=== PATIENT | female | born 1940 | race Caucasian/White ===

== ENCOUNTER → 2019-11-12 08:31 | Outpatient (BNVA) | payer MEDICARE, OTHER, SELFPAY | PROVIDERS: Family Provider Family Medicine; PCP Family Medicine; Referring Provider Family Medicine; Visit Provider Family Medicine | DX: I10 Essential (primary) hypertension (principal) | CPT/HCPCS: 80053; 80061; 85025 ==

== ENCOUNTER → 2020-05-15 09:54 | Outpatient (BNVA) | payer MEDICARE, OTHER, SELFPAY | PROVIDERS: Family Provider Family Medicine; PCP Family Medicine; Visit Provider Family Medicine | DX: I10 Essential (primary) hypertension (principal) | CPT/HCPCS: 80048 ==

== ENCOUNTER → 2021-02-09 09:26 | Outpatient (BNVA) | payer MEDICARE, OTHER, SELFPAY | PROVIDERS: Family Provider Family Medicine; PCP Family Medicine; Visit Provider Family Medicine | DX: Z00.00 Encounter for general adult medical examination without abnormal findings (principal); I10 Essential (primary) hypertension; E78.00 Pure hypercholesterolemia, unspecified; Z86.73 Personal history of transient ischemic attack (TIA), and cerebral infarction without residual deficits | CPT/HCPCS: 80053; 80061; 85025 ==

== ENCOUNTER 2021-11-24 22:55 | Emergency (ER) | payer MEDICARE, OTHER, SELFPAY ==
[2021-11-24 23:02] VITALS: BP 166/85; PULSE 102; RESP 18; TEMP 37.1; O2SAT 96; BMI 22.4
--- NOTE | 2021-11-24 23:20 | W.ED.EPISTAX ---
HPI - Epistaxis General: Chief complaint: Epistaxis Stated complaint: Nose Bleed Time Seen by Provider: 11/24/21 22:57 Source: patient Mode of arrival: ambulatory Limitations: no limitations History of Present Illness: HPI Narrative: 81-year-old female states she has had intermittent nosebleed since this morning states its been a small amount she been stuffing her nose with tissue when she pulls it out she pulls clots out and states she bleeds again. Bleeding is currently stopped she denies any bleeds in the past not on any blood thinners denies any worsening improving factors. Associated symptoms: Deny fever(s), headache(s) or vomiting Review of Systems Const: Denies: fever(s), chills, body aches or change in appetite Eyes: Denies: blurry vision or eye discomfort ENMT: Reports: epistaxis; Denies: throat pain or dental pain Card: Denies: chest pain Resp: Denies: dyspnea GI: Denies: abdominal pain, nausea, vomiting or diarrhea : Denies: dysuria Musc: Denies: neck pain or back pain Skin/Breast: Denies: rash Neuro: Denies: headache(s) Psych: Denies: depression Brad/Lymph: Denies: easy bruising All/Imm: Denies: urticaria PFSH ED PFSH: Medical History History of CVA (cerebrovascular accident) Hypertension Pure hypercholesterolemia Social History Smoking and tobacco status: never smoked Alcohol intake: never Physical Exam Const: COMMON NORMALS: no acute distress and patient oriented x3 HENMT: OTHER: Dried blood to the right nare Eye: COMMON NORMALS: EOMs intact bilaterally Neck/C-Spine: COMMON NORMALS: full ROM Chest: COMMONS NORMALS: normal inspection of the chest Resp: COMMON NORMALS: normal respiratory effort Cardio: COMMON NORMALS: regular rate RATE: regular rate Extremity: COMMON NORMALS: normal to inspection Neuro: COMMON NORMALS: patient oriented x3 Psych: COMMON NORMALS: mental status grossly normal Skin: COMMON NORMALS: no rashes or lesions noted GENERAL SKIN EXAM: no rashes or lesions noted Course Vital Signs: Vital signs: Vital Signs Temperature 98.7 F 11/24/21 23:02 Pulse Rate 102 H 11/24/21 23:02 Respiratory Rate 18 11/24/21 23:02 Blood Pressure 166/85 11/24/21 23:02 Pulse Oximetry 96 11/24/21 23:02 MDM - Epistaxis MDM Narrative: Medical decision making narrative: Patient presents with a nosebleed that is since stopped she is well-appearing here she is stable for discharge she is to follow-up with PCP and return if worsening she understands agrees to plan. Discharge Plan Discharge Patient Disposition: Home Clinical Impression: Epistaxis Condition: Stable Prescriptions: No Action aspirin [Adult Low Dose Aspirin] 81 mg tablet,delayed release (DR/EC) 81 mg PO DAILY RF: 0 diltiazem HCl 120 mg tablet 120 mg PO BID Qty: 180 RF: 3 simvastatin 20 mg tablet 20 mg PO DAILY Qty: 90 RF: 3 clopidogrel 75 mg tablet 75 mg PO DAILY Qty: 90 RF: 3 nifedipine 30 mg tablet extended release 30 mg PO DAILY Qty: 90 RF: 3 Discharge Orders: Discharge ED (Routine); Ordered 11/24/21 Ordered By: Anthony Yanez Referrals: Brenda Sue MD [Primary Care Provider] - 1-3 days Discharge Diet: Advance as tolerated Discharge Activity: Resume usual activity Patient Instructions: Nosebleed (ED) Coding Level of Care Code ED Business Account Leader for Chg Fwd Exam Comprehensive
[2021-11-24] MEDS: oxymetazoline 0.05% Nasal Spray 15 mL 2 SPRAY NOSTRIL-B (23:25)
--- NOTE | 2021-11-25 00:10 | PC.NURSE ---
bleeding has stopped.
[2021-11-25 00:25] VITALS: BP 139/85; PULSE 82; RESP 16; O2SAT 99
== END 2021-11-25 00:29 | disposition home or self-care (01) ==
PROVIDERS: Emergency Provider Emergency Medicine; PCP Family Medicine
DX: R04.0 Epistaxis (principal); I10 Essential (primary) hypertension; E78.00 Pure hypercholesterolemia, unspecified; Z79.82 Long term (current) use of aspirin; Z79.02 Long term (current) use of antithrombotics/antiplatelets; Z86.73 Personal history of transient ischemic attack (TIA), and cerebral infarction without residual deficits
CPT/HCPCS: 99283

== ENCOUNTER → 2022-02-15 09:27 | Outpatient (BNVA) | payer MEDICARE, OTHER, SELFPAY | PROVIDERS: PCP Family Medicine; Visit Provider Family Medicine | DX: E78.00 Pure hypercholesterolemia, unspecified (principal); I10 Essential (primary) hypertension | CPT/HCPCS: 80053; 80061; 85025 ==

== ENCOUNTER → 2023-04-18 10:41 | Outpatient (BNVA) | payer MEDICARE, OTHER, SELFPAY | PROVIDERS: PCP Family Medicine; Visit Provider Family Medicine | DX: Z00.00 Encounter for general adult medical examination without abnormal findings (principal); H61.21 Impacted cerumen, right ear; I10 Essential (primary) hypertension; E78.00 Pure hypercholesterolemia, unspecified; Z79.899 Other long term (current) drug therapy | CPT/HCPCS: 80053; 80061; 85025 ==

== ENCOUNTER → 2024-06-05 15:56 | Outpatient (BNVA) | payer MEDICARE, OTHER, SELFPAY | PROVIDERS: PCP Family Medicine; Visit Provider Family Medicine | DX: I10 Essential (primary) hypertension (principal); E78.00 Pure hypercholesterolemia, unspecified; E03.9 Hypothyroidism, unspecified | CPT/HCPCS: 80053; 80061; 84443; 85025; 93005 ==

== ENCOUNTER → 2024-07-02 08:56 | Outpatient (BNVA) | payer MEDICARE, OTHER, SELFPAY | PROVIDERS: PCP Family Medicine; Visit Provider Internal Medicine | DX: R00.2 Palpitations (principal); I49.3 Ventricular premature depolarization; I49.1 Atrial premature depolarization; I47.10 Supraventricular tachycardia, unspecified | CPT/HCPCS: 93242 ==

== ENCOUNTER 2024-08-31 09:43 | Outpatient (CLI) | payer MEDICARE, OTHER, SELFPAY ==
--- NOTE | 2024-08-31 10:00 | USCV_ITS ---
Pamela Al Age: 83 Gender: F : 1940 Exam Date: 08/31/2024 10:12 Ordering Phys: Brenda Sue MD Technologist: CT Exam Location: [facility] [place] Indication: BP: 130 / 79 HR: 64 Rhythm: Sinus Technical Quality: Adequate MEASUREMENTS (Male / Female) Normal Values 2D ECHO LVOT Diameter 2.0 cm LV Ejection Fraction MOD 4C 60.3 % LV Ejection Fraction MOD 2C 57.9 % LV Ejection Fraction 2C AL 57.8 % LA Diameter 3.7 cm RA Systolic Volume 4C AL 25.8 ml RA Systolic Volume 4C MOD 25.2 ml LA Sys Volume AL 42.1 cm cubed LA Sys Volume Index AL 26.5 cm cubed/m squared Aorta at Sinotubular Diameter 2.5 cm IVC Diameter 2.3 cm M-MODE LA Ao Ratio MM 1.5 AV Cusp Separation MM 2.0 cm DOPPLER AV Peak Velocity 158.0 cm/s AV Area Cont Eq vti 2.7 cm squared AV Area Cont Eq pk 2.6 cm squared MV Peak Velocity 163.0 cm/s MV Area PHT 3.2 cm squared Mitral E to A Ratio 0.7 TV Peak Velocity 258.0 cm/s TR Peak Velocity 272.0 cm/s TR Peak Gradient 29.6 mmHg TV Peak E Velocity 82.0 cm/s Right Atrial Pressure 3.0 mmHg Pulmonary Artery Systolic Pressu 32.6 mmHg PV Peak Velocity 93.0 cm/s FINDINGS Left Ventricle Normal LV size ejection fraction 59%. No gross wall motion abnormalities.Grade III/IV diastolic dysfunction (restrictive filling pattern), severely elevated filling pressures. Grade I/IV diastolic dysfunction (abnormal relaxation filling pattern), normal to mildly elevated filling pressures. Right Ventricle The right ventricle is normal in size and function. Right Atrium The right atrium is normal in size. Left Atrium The left atrium is normal in size. Mitral Valve Mild mitral annular calcification. Mild to moderate mitral valve regurgitation. Aortic Valve Minimally thickened aortic valve Tricuspid Valve Trace tricuspid valve regurgitation. Pulmonic Valve No gross abnormalities noted Pericardium Normal pericardium without effusion. Aorta Normal aorta. IVC The inferior vena cava appears normal. CONCLUSIONS Normal LV size ejection fraction 59%. No gross wall motion abnormalities.Grade III/IV diastolic dysfunction (restrictive filling pattern), severely elevated filling pressures. Grade I/IV diastolic dysfunction (abnormal relaxation filling pattern), normal to mildly elevated filling pressures. Mild mitral annular calcification. Trace tricuspid valve regurgitation. Mild to moderate mitral valve regurgitation There is no pericardial effusion. There are no intracardiac masses. . No similar previous studies are available for comparison Dr Hubert Zavala MD [facility] (Electronically Signed) Final Date: 01 September 2024 13:55 S
== END 2024-08-31 09:44 | disposition home or self-care (01) ==
LOC: RAD 09:43
PROVIDERS: PCP Family Medicine; Visit Provider Family Medicine
DX: I50.30 Unspecified diastolic (congestive) heart failure (principal); I34.0 Nonrheumatic mitral (valve) insufficiency; I49.3 Ventricular premature depolarization; Z86.73 Personal history of transient ischemic attack (TIA), and cerebral infarction without residual deficits
CPT/HCPCS: 93306

== ENCOUNTER → 2024-09-13 10:44 | Outpatient (BNVA) | payer MEDICARE, OTHER, SELFPAY | PROVIDERS: PCP Family Medicine; Visit Provider Clinical Nurse Specialist Adult Health | DX: N39.0 Urinary tract infection, site not specified (principal) | CPT/HCPCS: 81000; 87086 ==

== ENCOUNTER → 2025-01-02 12:33 | Outpatient (BNVA) | payer MEDICARE, OTHER, SELFPAY | PROVIDERS: PCP Family Medicine; Visit Provider Internal Medicine | DX: R07.9 Chest pain, unspecified (principal); I45.10 Unspecified right bundle-branch block; I49.3 Ventricular premature depolarization; I10 Essential (primary) hypertension | CPT/HCPCS: 93005; 99204 ==

== ENCOUNTER 2025-01-15 08:00 | Outpatient (CLI) | payer MEDICARE, OTHER, SELFPAY ==
--- NOTE | 2025-01-15 | ECG_ITS ---
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 Interpretive Statements LEXISCAN: Procedure: At the baseline, the blood pressure was 135/93 mmHg with a heart rate of 74 bpm. The electrocardiogram showed normal sinus rhythm, incomplete right bundle branch block, frequent PVCs with normal ST and T's. The Lexiscan was infused over a period of 20 seconds. A total of 0.4 mg of Lexiscan was infused. The stress phase was continued for a total of 5 minutes. Heart rate was at the end of stress phase was 91 bpm and a blood pressure of 145/71 mmHg. The EKG at the peak infusion revealed normal sinus rhythm with no significant ST-T wave changes. Sestamibi was injected 20 seconds after the Lexiscan infusion. Blood pressure at the end of recovery phase was 143/75 mmHg with a heart rate of 89 bpm. Conclusion: 1. Normal EKG response to Lexiscan infusion 2. No Lexiscan induced chest pain or cardiac arrhythmia. 3. Normal blood pressure and heart rate response. 4. Sestamibi/sestamibi perfusion scan pending; see separate report. Electronically Signed On 01-27-2025 02:13:26 CDT by Kam Duque M.D. [email or web address]
[2025-01-15 08:02] VITALS: BMI 20.2
--- NOTE | 2025-01-15 08:02 | NMCV_ITS ---
NM calli perf SPECT r/s* [id number] Pamela Al Age: 84 Gender: F : 1940 Exam Date: 01/15/2025 09:00 Ordering Phys: Kam Duque M.D ([email or web address]) Technologist: NEAL Crowell Exam Location: [facility] Indications: cp STRESS TEST Please [facility] IMAGE PROTOCOL Rest/Stress 1 Lexiscan Day Radiopharmaceutical Dose (mCi) Administration Site Administered by Rest: Tc-99m 10.6 IV NEAL Crowell Sestamibi Stress:Tc-99m 32.8 IV NEAL Alvarez Sestamibi Rest: 15-Jan-2025 60 Discovery 630 Stress: 15-Jan-2025 30 Discovery 630 0.4mg Lexiscan. Images obtained in supine and prone position. SPECT RESULTS Technical Quality: Good Raw Data Analysis: Normal Image Corrections: No attenuation or motion correction applied Summed Stress Score: 5 Summed Rest Score: 7 Summed Difference Score: 0 PERFUSION FINDINGS There is reduced radiotracer uptake seen in apical, apical lateral and apical septal wright. This resolves on prone imaging. This is consistent with attenuation artifact. No evidence of ischemia. FUNCTIONAL RESULTS (calculated via Gated SPECT) Stress Image LV EF (%): 75 Stress EDV (mL):96 TID: 1 Stress ESV (mL):24 FUNCTIONAL FINDINGS: There is normal left ventricular systolic function. IMPRESSIONS 1. Attenuation artifact seen in apical, apical lateral and apical septal wright. No evidence of ischemia 2. LV systolic function is normal Kam Duque MD (Electronically Signed) Final Date: 16 January 2025 08:41 S
[2025-01-15] MEDS: regadenoson 0.4 Mg/5 ml Syringe IVP (09:24)
[2025-01-15 09:37] VITALS: BP 143/75; PULSE 89
== END 2025-01-15 08:01 | disposition home or self-care (01) ==
LOC: CDL 08:00
PROVIDERS: PCP Family Medicine; Visit Provider Internal Medicine
DX: R07.9 Chest pain, unspecified (principal); R06.02 Shortness of breath
CPT/HCPCS: 36415; 78452; 93017; 96374; A9500; J2785

== ENCOUNTER → 2025-02-28 12:09 | Outpatient (BNVA) | payer MEDICARE, OTHER, SELFPAY | PROVIDERS: PCP Family Medicine; Visit Provider Internal Medicine | DX: I49.3 Ventricular premature depolarization (principal); I10 Essential (primary) hypertension; Z79.01 Long term (current) use of anticoagulants; Z79.82 Long term (current) use of aspirin | CPT/HCPCS: 99214 ==

== ENCOUNTER → 2025-06-10 10:03 | Outpatient (BNVA) | payer MEDICARE, OTHER, SELFPAY | PROVIDERS: PCP Family Medicine; Visit Provider Family Medicine | DX: I10 Essential (primary) hypertension (principal); E78.00 Pure hypercholesterolemia, unspecified; Z00.00 Encounter for general adult medical examination without abnormal findings | CPT/HCPCS: 80053; 80061; 85025 ==

== ENCOUNTER → 2025-10-15 15:23 | Outpatient (BNVA) | payer MEDICARE, OTHER, SELFPAY | PROVIDERS: PCP Family Medicine; Visit Provider Internal Medicine | DX: I49.3 Ventricular premature depolarization (principal); I10 Essential (primary) hypertension | CPT/HCPCS: 99214 ==